=== PATIENT | male | born 1950 | race Caucasian/White ===

== ENCOUNTER 2025-04-19 15:00 | Outpatient (AMB) | payer MEDICARE, OTHER, SELFPAY ==
--- NOTE | 2025-04-19 15:22 | A.OFFPC_ITS ---
Vital Signs 04/19/25 15:31 Height 5 ft 8.11 in Weight 224 lb 6 oz BMI 34.0 BP 108/82 Blood Pressure Location Lt brachial Position Sitting Respiration 14 Pulse 88 Pulse Source Pulse Oximeter Temp 98.6 F Temp Source Oral Pulse Oximetry (%) 93 Oxygen Delivery Method Room Air Intake Visit Reasons: [facility] care/dr mina patient Intake Note: New pateint visit Compensation Coordinator Required: No Allergies No Known Allergies Allergy (Verified 04/19/25 15:28) Tobacco use date assessed: 04/19/25 Fall risk assessment: No Falls in past year Last assessed Fall Risk: 04/19/25 Dental Screening Dental Screen Date: 04/19/25 Did you have a dental visit in the last 12 months?: Yes Did you have a dental problem in the last 6 months where you did not have access to dental care?: No Was dental information given to patient?: Patient has dentist HPI HPI Comments History of Present Illness Details 75 year old male with a past medical his tory of a fib, htn, hld, SSS s/p PPM, type 2 DM, YINA, history of colon cancer presenting to [facility]. Saw Dr Hernandez for AWV 01/06/25 prior to long term Diabetes- On metformin 1000mg [id number] noted at 6.4%. on . eye exam UTD. [facility]-history of colon cancer. Patients colonoscopy is up to date. [facility] CV: afib. PPM SSS. eliquis, cardizem, furosemide [address] Bush YINA: on CPAP. [facility] pul urology-dr bayron WILDER Prior history of gout [facility]. ROS CONSTITUTIONAL: Denies weight loss, fever and chills. HEENT: Denies changes in vision and hearing. RESPIRATORY: Denies SOB and cough. CV: Denies palpitations and CP GI: Denies abdominal pain, nausea, vomiting and diarrhea. : Denies dysuria and urinary frequency. MSK: Denies new myalgia and joint pain. SKIN: Denies rash and pruritus. NEUROLOGICAL: Denies headache PSYCHIATRIC: Denies recent changes in mood. PHYSICAL EXAM: GENERAL: Alert and oriented x 3. NAD EYES: EOMI. Anicteric. HENT: Moist mucous membranes. No scleral icterus. No cervical lymphadenopathy. LUNGS: Clear to auscultation bilaterally. CARDIOVASCULAR: Regular rate and rhythm. No murmur. No JVD. ABDOMEN: Soft, non-tender +bs EXTREMITIES: No edema. Non-tender. SKIN: No rashes or lesions. Warm. NEUROLOGIC: No focal neurological deficits. CN II-XII grossly intact PSYCHIATRIC: Cooperative. Appropriate mood and affect [facility] Medical History Cardiac pacemaker Surgical History History of low anterior resection of rectum H/O colonoscopy Family History Mother Dementia Father Respiratory disease Other FH: mental illness Social History Housing: House Alcohol intake: current Patient Tobacco Use Status: Former Tobacco user (smoked from age [age]) Years Smoked: 1 e-Cigarette/Vaping Use: Never Used Current occupational status: retired Cognitive needs: No Hearing needs: Yes (Hearing loss, having ear aids) Vision needs: No Questionnaire PHQ-9 Over the last 2 weeks, how often have you been bothered by any of the following problems? 1. Little interest or pleasure in doing things: not at all 2. Feeling down, depressed, or hopeless: not at all 3. Trouble falling or staying asleep, or sleeping too much: not at all 4. Feeling tired or having little energy: not at all 5. Poor appetite or overeating: not at all 6. Feeling bad about yourself - or that you are a failure or have let yourself or your family down: not at all 7. Trouble concentrating on things, such as reading the newspaper or watching television: not at all 8. Moving or speaking so slowly that other people could have noticed. Or the opposite - being so fidgety or restless that you have been moving around a lot more than usual: not at all 9. Thoughts that you would be better off or of hurting yourself in some way: not at all Total score: 0 Depression Screening Interpretation: Negative Depression Screening Done: Yes 49745 - PHQ-9 Billing: Yes Source: Developed by Drs. Maulik L. Britney, Edwin Zhou and colleagues, with an educational lashell from [employer]. Thrive Questionnaire Date Thrive assessed: 04/19/25 I am a: Patient What is your living situation today?: I have a steady place to live Within the past 12 months, did the food you bought not last and you didn't have the money to get more?: Never true Within the past 12 months, did you worry whether your food would run out before you got money to buy more?: Never true Do you have trouble paying for medicines?: No Do you have trouble getting transportation to medical appointments?: No Do you have trouble paying your heating and electricity bill?: No Do you have trouble taking care of your child, family member or friend?: No Do you have trouble with day-to-day activities such as bathing, preparing meals, shopping, managing finances, etc.?: No Are you currently unemployed and looking for a job?: No Are you interested in more education?: No Please select the resources that you would like help with: None Currently or been in a relationship where the following occur: No concerns reported THRIVE Score: 0 AUDIT C Alcohol Use Questionnaire (AUDIT-C) 1. How often do you have a drink containing alcohol?: 2-3 times a week 2. How many drinks containing alcohol do you have on a typical day when you are drinking?: 1 or 2 3. How often do you have six or more drinks on one occasion?: Never Total Score: 3 GALE-7 AMB Questionnaire GALE-7 Date GALE - 7 assessed: 04/19/25 Feeling nervous, anxious, or on edge: 0 = Not at all Not being able to stop or control worryin = Not at all Worrying too much about different things: 1 = Several days Trouble relaxin = Several days Being so restless that it is hard to sit still: 0 = Not at all Becoming easily annoyed or irritable: 0 = Not at all Feeling afraid as if something awful might happen: 0 = Not at all Total GALE-7 score (0-4 normal; 5-9 mild; 10-14 moderate; 15-21 severe): 2 Source: Developed by Drs. Maulik Tan, Edwin Zhou and colleagues, with an educational lashell from [employer]. GALE-7 Assessment Billing GALE-7 Assessment Tool: GALE-7 Assessment 78614 Physical exam (Primary Care) Vital Signs: Last Vital Signs Temp 98.6 F 04/19/25 15:31 Pulse 88 04/19/25 15:31 Resp 14 04/19/25 15:31 BP 108/82 04/19/25 15:31 Pulse Ox 93 04/19/25 15:31 Oxygen Delivery Method Room Air 04/19/25 15:31 BMI result Body Mass Index 34.0 Tobacco/Smoking Status: Tobacco use Status Tobacco use date assessed 04/19/25 04/19/25 15:38 Patient Tobacco Use Status Former Tobacco user (smoked 04/19/25 15:38 from age [age]) e-Cigarette/Vaping Use Never Used 04/19/25 15:38 PHQ-9: PHQ-9 Score PHQ-9: Total score 0 04/24/25 11:08 Depression Screening Interpretation: Negative Thrive Assessment: Date of Thrive Assessment Date Thrive assessed 04/19/25 04/19/25 16:30 Currently or been in a relationship where the following occur: No concerns reported Coding Level of Care Code New Pt Level 4 (35683) Complex EM visit Add On G2211 Diagnoses Type 2 diabetes mellitus with other specified complication, without long-term current use of insulin E11.69 Diabetes mellitus [facility] insulin use: without extermination supervisor use Diabetes mellitus complication status: with other specified complication Atrial fibrillation, unspecified type I48.91 Atrial fibrillation type: unspecified Additional Codes GALE-7 Assessment Billing - GALE-7 Assessment Tool: GALE-7 Assessment 07684 ([id number]) PHQ-9 - 47870 - PHQ-9 Billing: Yes ([id number]) Assessment & Plan Assessment & Plan (1) Diabetes type 2: Code(s): E11.9 - Type 2 diabetes mellitus without complications Category: Medical Qualifiers: Diabetes mellitus [facility] insulin use: without [facility] use Diabetes mellitus complication status: with other specified complication Qualified Code(s): E11.69 - Type 2 diabetes mellitus with other specified complication (2) Atrial fibrillation: Code(s): I48.91 - Unspecified atrial fibrillation Category: Medical Qualifiers: Atrial fibrillation type: unspecified Qualified Code(s): I48.91 - Unspecified atrial fibrillation Plan 75 year old to establish care Past medical, surgical, social reviewed Diabetes well controlled. Labs ordered. continue current medications Hypertension-well controlled on current medications. Orders: Orders Hemoglobin A1c 04/22/25 E11.9 - Type 2 diabetes mellitus without complications, H91.90 - Unspecified hearing loss, unspecified ear, I48.91 - Unspecified atrial fibrillation Lipid Panel 04/22/25 E11.9 - Type 2 diabetes mellitus without complications, H91.90 - Unspecified hearing loss, unspecified ear, I48.91 - Unspecified atrial fibrillation Hemoglobin A1c 3 Months E11.9 - Type 2 diabetes mellitus without complications, H91.90 - Unspecified hearing loss, unspecified ear, I48.91 - Unspecified atrial fibrillation Comprehensive Met. Panel 3 Months E11.9 - Type 2 diabetes mellitus without complications, H91.90 - Unspecified hearing loss, unspecified ear, I48.91 - Unspecified atrial fibrillation Comprehensive Met. Panel 04/22/25 E11.9 - Type 2 diabetes mellitus without complications, H91.90 - Unspecified hearing loss, unspecified ear, I48.91 - Unspecified atrial fibrillation Complete Blood Count Auto Diff 04/22/25 E11.9 - Type 2 diabetes mellitus without complications, H91.90 - Unspecified hearing loss, unspecified ear, I48.91 - Unspecified atrial fibrillation Medications: New metoprolol succinate ER 200 mg PO DAILY 90 ea 3RF allopurinol 200 mg PO DAILY 90 tabs 3RF
[2025-04-19 15:31] VITALS: BP 108/82; PULSE 88; RESP 14; TEMP 37; O2SAT 93; BMI 34.0
--- OUTSIDE RECORDS SUMMARY | 2025-04-19 15:32 | XMS_ITS | Clinical Summary ---
Author Organization [facility] Address [address] [place] [address] Care Team Providers Care Head And Neck Surgeon Name Role Phone Rikki Chen MD Primary Care Provider [phone] Allergies Active Allergy Reactions Criticality Noted Date Comments Oxycodone 05/29/2023 Nausea as patient takes it but not really an allergic reaction Medications Medication Sig Dispensed Refills Start Date End Date Status ALBUTEROL IN Inhale 2 puffs into the lungs every 4 (four) hours as needed (WHEEZING, SOB). 0 Active allopurinol (ZYLOPRIM) 300 MG tablet Take 1 tablet (300 mg total) by mouth daily. 0 Active dilTIAZem HCl ER 360 MG TB24 Take 1 capsule by mouth daily. 0 Active apixaban (ELIQUIS) 5 MG TABS tablet Take 1 tablet (5 mg total) by mouth every 12 (twelve) hours. 0 Active finasteride (PROSCAR) 5 MG tablet Take 1 tablet (5 mg total) by mouth daily. 0 Active metFORMIN (GLUCOPHAGE-XR) ER 24 hr tablet 500 mg Take 1 tablet (500 mg total) by mouth every morning with breakfast. 0 Active metoprolol succinate (TOPROL-XL) 24 hr tablet 200 mg Take 1 tablet (200 mg total) by mouth daily. 0 Active pravastatin (PRAVACHOL) tablet 80 mg Take 1 tablet (80 mg total) by mouth daily. 0 Active valsartan (DIOVAN) tablet 320 mg Take 1 tablet (320 mg total) by mouth daily. 0 Active Semaglutide 14 MG TABS Take 1 tablet by mouth daily. 0 Active Active Problems No known active problems Social History Tobacco Use Types Packs/Day Years Used Date Smoking Tobacco: Never Assessed Sex and Gender Information Value Date Recorded Sex Assigned at Male 04/14/2023 3:49 PM EDT Gender Identity Not on file Sexual Orientation Not on file Job Start Date Occupation Industry Not on file Not on file Not on file Last Filed Vital Signs Vital Sign Reading Time Taken Comments Blood Pressure 155/81 05/30/2023 10:42 AM EDT Pulse 88 05/30/2023 10:42 AM EDT Temperature 36.3 C (97.3 F) 05/30/2023 10:42 AM EDT Respiratory Rate - - Oxygen Saturation 96% 05/30/2023 10:42 AM EDT Inhaled Oxygen Concentration - - Weight 108.9 kg (240 lb) 05/30/2023 10:42 AM EDT Height 175.3 cm (5' 9 ) 05/30/2023 10:42 AM EDT Body Mass Index 35.44 05/30/2023 10:42 AM EDT Plan of Treatment Health Maintenance Due Date Last Done Comments Hepatitis C Screening 1950 COVID-19 Vaccine (#1) 1950 Depression Screening 1962 Preventative Health Evaluation 02/22/1968 Colon Cancer Screening (Colonoscopy) 1995 Fall Risk Assessment 2015 DTap / Tdap / Td (1 - Tdap) 10/08/2016 10/07/2016, 0 10/05/2006 RSV Adult > 60+ Yrs or (1 - 1-dose 75+ series) 2025 Influenza Vaccine (#1) 2025 2, 07/09/2021, 07/07/2020, Additional history exists Pneumococcal Vaccine Completed 10/07/2016, 03/09/2015, 04/01/2006 Shingrix-Zoster Vaccine Completed 07/15/2020, 07/15 Hepatitis B Vaccines Aged Out No long er eligible based on patient's age to complete this topic RSV Ped < 20 months Aged Out No longe r eligible based on patient's age to complete this topic Care Teams Head And Neck Surgeon Relationship Specialty Start Date End Date Rikki Chen MD [address] [place] [id number] PCP - General Internal Medicine 04/14/23
== END 2025-04-19 16:00 | disposition home or self-care (01) ==
LOC: HO.HMCFM 15:01
PROVIDERS: PCP Internal Medicine; Visit Provider Internal Medicine
DX: E11.69 Type 2 diabetes mellitus with other specified complication (principal); I48.91 Unspecified atrial fibrillation

== ENCOUNTER → 2025-04-19 15:00 | Outpatient (BNVA) | payer MEDICARE, OTHER, SELFPAY | PROVIDERS: PCP Internal Medicine; Visit Provider Internal Medicine | DX: Z76.89 Persons encountering health services in other specified circumstances (principal); E11.69 Type 2 diabetes mellitus with other specified complication; I48.91 Unspecified atrial fibrillation; I10 Essential (primary) hypertension; G47.33 Obstructive sleep apnea (adult) (pediatric); Z85.038 Personal history of other malignant neoplasm of large intestine; Z79.84 Long term (current) use of oral hypoglycemic drugs; Z99.89 Dependence on other enabling machines and devices; Z13.31 Encounter for screening for depression; Z13.39 Encounter for screening examination for other mental health and behavioral disorders | CPT/HCPCS: 96127; 99202 ==

== ENCOUNTER 2025-04-22 09:53 | Outpatient (REF) | payer MEDICARE, OTHER, SELFPAY ==
--- OUTSIDE RECORDS SUMMARY | 2025-04-22 09:56 | XMS_ITS | Clinical Summary ---
Author Organization [facility] Address [address] [place] [address] Care Team Providers Care Penciller Name Role Phone Rikki Chen MD Primary Care Provider [phone] Allergies Active Allergy Reactions Criticality Noted Date [...] age to complete this topic Care Teams Penciller Relationship Specialty Start Date End Date Rikki Chen MD [address] [place] [address] PCP - General Internal Medicine 04/14/23
--- OUTSIDE RECORDS SUMMARY | 2025-04-22 09:56 | XMS_ITS | Encounter Summary ---
Author Organization [facility] Address [address] [place] [address] Care Team Providers Care Forming Tube Selector Name Role Phone Rikki Chen MD Primary Care Provider [phone] Encounter Details Date Type Department Care Team (Late st Contact Info) Description 08/19/2024 Lab Requisition [facility] - Main Lab [address] [facility] [place] [address] Aaron Martin PA [address] [place] [address] Benign essential microscopic hematuria Social History Tobacco Use Types Packs/Day Years Used Date Smoking Tobacco: Never Assessed Sex and Gender Information Value Date Recorded Sex Assigned at Not on file Legal Sex Male 8:13 PM EST Gender Identity Not on file Sexual Orientation Not on file documented as of this encounter Plan of Treatment Not on file documented as of this encounter Procedures Procedure Name Priority Date/Time Associated Diagnosis Comments AP OUTSIDE CONSULT Routine 08/09/2024 12 :00 AM EST Benign essential microscopic hematuria documented in this encounter Results * Anatomic pathology outside consult (08/09/2024 12:00 AM EST) Final Diagnosis Urine, Voided: Negative for high-grade urothelial carcinoma. Abundant acute inflammation present. 09/03/2024 3:25 PM EST [facility] Clinical Information [id number] Cytology w/reflex UroVysion. 09/03/2024 3:25 PM EST [facility]) [facility] Gross Description A. Urine, Voided, : [id number] recd 1 TP slide 09/03/2024 3:25 PM EST [facility] Disclaimer Technical pathology services provided by [facility] at [address], [place] [address] (CLIA #[id number]/Speedy Griffiths MD, Testing Manager) Unless otherwise specified, all tissue is 10% NB formalin fixed and paraffin embedded. 09/03/2024 3:25 PM EST [facility] Tissue Urine specimen from urethra / Unknown 08/09/2024 08/19/2024 10:52 AM EST us Aaron [facility] PATH[facility]Y ORDERAB LES Final Result [facility] [address] [place] [address], documented in this encounter Visit Diagnoses Diagnosis Benign essential microscopic hematuria documented in this encounter Care Teams Forming Tube Selector Relationship Specialty Start Date End Date Rikki Chen MD [address] [place] [address] PCP - General 04/14/23 documented as of this encounter
[2025-04-22 11:33] LABS: MANUAL DIFF FLAG NO
[2025-04-22 11:43] LABS: Hematocrit 45.0 % (42.0-52.0); Hemoglobin 15.0 g/dl (14.0-18.0); Imm Gran Abs Auto 0.14 X10*3/uL (0.00-0.03); Imm Gran Pct Auto 1.0 % (0.0-0.4); Lymphocytes Absolute Auto 1.3 X10*3/uL (1.2-4.9); Mean Corpuscular HGB Conc 33.3 g/dl (31.0-36.0); Mean Corpuscular Hemoglobin 31.6 pg (27.0-33.0); Mean Corpuscular Volume 94.7 fL (80.0-98.0); NRBC Abs Auto 0.000 X10*3/uL (0.0-0.012); NRBC Pct Auto 0.0 /100WBC (0.0-0.2); Platelet Count 480 X10*3/uL (160-400); Red Blood Count 4.75 X10*6/uL (4.60-5.80); White Blood Count 14.0 X10*3/uL (4.8-10.8)
[2025-04-22 12:06] LABS: Hemoglobin A1C 164.6403 umol/L; Total Hemoglobin (HGBA1C) 3919.7084 umol/L
[2025-04-22 12:18] LABS: Alanine Aminotransferase 19 U/L (0-40); Albumin Level 4.2 g/dL (3.5-5.0); Alkaline Phosphatase 76 U/L (39-117); Anion Gap 11 (12-20); Aspartate Amino Transferase 38 U/L (5-37); Blood Urea Nitrogen 16 mg/dL (9-16); Calcium 9.3 mg/dL (8.4-10.2); Carbon Dioxide 31 mmol/L (22-29); Chloride 101 mmol/L (96-108); Cholesterol 112 mg/dL (<200); Estimated Glomerular Filt Rate > 60; HDL Cholesterol 29 mg/dL (>40); Potassium 3.8 mmol/L (3.3-5.1); Sodium 139 mmol/L (135-145); Total Protein 6.5 g/dL (6.5-8.0); Triglycerides 129 mg/dL (<150)
== END 2025-04-22 09:54 | disposition home or self-care (01) ==
LOC: HO.WFDLDS 09:53
PROVIDERS: Visit Provider Internal Medicine
DX: E11.9 Type 2 diabetes mellitus without complications (principal); I48.91 Unspecified atrial fibrillation; H91.90 Unspecified hearing loss, unspecified ear
CPT/HCPCS: 36415; 80053; 80061; 83036; 85025

== ENCOUNTER 2025-07-22 11:07 | Outpatient (REF) | payer MEDICARE, OTHER, SELFPAY ==
--- OUTSIDE RECORDS SUMMARY | 2025-07-22 13:23 | XMS_ITS | Continuity of Care Document ---
Author Organization [place] - [facility], [facility] Address [address] [place] [address] Assessment Encounter Date Assessment Date Assessment LastModified by Organization Details LastModified Time 04/22/2025 04/22/2025 The patient would benefit from hearing aids. 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 He expressed satisfaction with the service received today and is looking forward to working with Marta. [email or web address] Not available 04/22/2025 16:56:12 Plan of Treatment Reminders Order Date Submit Date Provider Last Modified By Organization Details Last Modified Time Details Appointments None record ed. Lab None record ed. Referral None record ed. Procedures None record ed. Surgeries None record ed. Imaging None record ed. Medication Orders None record ed. Patient TargetsNo targets recorded. 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 [email or web address] Not available 04/22/2025 16:56:12 Please note: Parts of this encounter note have been generated by AI based on audio conversation. Patient consent was required prior to utilizing this technology. Content review was required prior to finalizing the note. [email or web address] Not available 04/22/2025 16:56:12 Reason for Referral None Reported. Results Created Date Observation Date Name Description Value Unit Range Abnormal Flag Note LastModifiedBy Organization Detail LastModifiedTime 04/22/20 25 audio gram No observ ation record ed. BARCODE Not Available 2024 15:46:20 Result Notes None recorded. Problems Name Problem SNOMED Code Status Onset Date Resolution Date Notes Provider Name and Address Organization Details Recorded Time Sensorineural hearing loss of bilateral ears 846907442 Active 2024 SAHARA CASTILLO [place], [facility] [address] [facility], [place], [address], [facility] 14:52:10 Problem Notes None recorded. Procedures Surgical History Date Name Laterality Status Provider Name and Address Organization Details Recorded Time 04/22/2025 Comp Audio with Tymps - 96046 & 30398 completed SAHARA CASTILLO MA, [facility] [address] [facility] [address], [place], [address], [facility] 04/22/2025 14:52:04 Imaging Results None recorded. Procedure Notes None recorded. Medical Equipment None Reported. Medications Name Sig Start Date Stop Date Status Note LastModified by Organization Details LastModified Time furosemide 40 mg tablet TAKE 1 TABLET BY MOUTH EVERY DAY 04/22 completed Not Available Not Available Not Available ammonium lactate 12 % lotion APPLY TO ARMS AND LEG TWICE A DAY 04/22 completed Not Available Not Available Not Available metoprolol succinate ER 200 mg tablet,exte nded release 24 hr TAKE 1 TABLET BY MOUTH DAILY active Not Available Not Available No t Available prednisone 20 mg tablet TAKE 3 TABLETS BY MOUTH DAILY FOR 7 DAYS 04/22 completed Not Available Not Available Not Available diltiazem CD 360 mg capsule,ext ended release 24 hr TAKE 1 CAPSULE BY MOUTH EVERY DAY active Not Available Not Available No t Available pravastatin 80 mg tablet TAKE 1 TABLET BY MOUTH EVERY DAY active Not Available Not Available No t Available furosemide 80 mg tablet TAKE 1 TABLET BY MOUTH EVERY DAY active Not Available Not Available No t Available codeine 10 mg-guaifene sin 100 mg/5 mL oral liquid TAKE 5 ML BY MOUTH EVERY 6 HOURS NEEDED FOR COUGH AND CONGESTIO N 04/22 completed Not Available Not Available Not Available allopurinol 300 mg tablet TAKE 1 TABLET BY MOUTH EVERYDAY AT BEDTIME 04/22 completed Not Available Not Available Not Available furosemide 20 mg tablet TAKE 2 TABLETS BY MOUTH DAILY 04/22 completed Not Available Not Available Not Available albuterol sulfate HFA 90 mcg/actuati on aerosol inhaler INHALE 2 PUFFS INTO LUNGS EVERY 4 HOURS NEEDED FOR ASTHMA active Not Available Not Available No t Available metformin ER 500 mg tablet,exte nded release 24 hr TAKE 2 TABLETS BY MOUTH EVERY DAY active Not Available Not Available No t Available finasteride 5 mg tablet TAKE 1 TABLET BY MOUTH EVERY DAY active Not Available Not Available No t Available Eliquis 5 mg tablet TAKE 1 TABLET BY MOUTH 2 TIMES A DAY active Not Available Not Available No t Available Rybelsus 14 mg tablet TAKE 1 TABLET BY MOUTH EVERY DAY active Not Available Not Available No t Available allopurinol 200 mg tablet TAKE 1 TABLET BY MOUTH EVERY DAY active Not Available Not Available No t Available Vitals Date Recorded Body height Body mass index (BMI) Body weight Provider Name and Address Organization Details Last Updated DateTime 04/22/2025 175.26 cm 33.1 kg/m2 255970.69 g TRICIA SAPP [place] - [facility] 04/22/2025 15:04:28 Social History None recorded. Functional Status None recorded. Mental Status None recorded. Family History Nothing Reported. Medical History No medical history recorded. Past Encounters Encounter ID Performer Location Encounter Start Date Encounter Closed Date Diagnosis/Indication Diagnosis SNOMED-CT Code Diagnosis ICD10 Code Diagnosis IMO Codes Diagnosis Note [id number] PEDRO FIGUEROA MD [facility] [address] [address] 04/22/2025 14:00:24 04/22/2025 15:54:35 Sensorineural hearing loss of bilateral ears [id number] H90.3 [id number] SAHARA CASTILLO MA, CCC-A [facility] [address] [address] 04/22/2025 14:00:13 04/22/2025 16:29:51 Sensorineural hearing loss of bilateral ears 515872377 H90.3 [id number] Audiologic al evaluation results:Ri ght ear:Normal hearing at 250 and 500H dropping to mild to severe SNHL with good word recognitio n.Left ear:Normal hearing thru 1000Hz dropping to a mild to severe SNHL with good word recognitio n. Tympanomet ry:Right Ear:Type ALeft Ear:Type A Health Concerns Section Related Observation LastModified by Organization Detai ls LastModified Time None Recorded Concern Status LastModified by Organization Details LastModified Time None Recorded Payers Encounter Date Sequence Insurance Name Policy Number Policy Moreno Covered Member ID Moreno Member ID Guarantor Name 04/22/2025 2 [facility] (PPO) [id number] Adithya Bullock [id number] Adithya Bullock 04/22/2025 1 MEDICARE [place] Adithya Bullock [id number] Adithya Bullock Notes Date Note Type Note Provider Name and Address Organization Details Recorded Time 04/22/2025 text/html Longstanding hearing loss SAHARA CASTILLO MA, CCC-A [address], [address], [facility] 04/22/2025 14:54:36 04/22/2025 text/html ROS as noted in the HPI hearing loss, seeking hearing aids Adithya Bullock is a 75-year-old male who presents for hearing loss. He previously had hearing aids obtained around 2018 at [facility]. He lost one hearing aid, and the remaining device is no longer functioning without its contralateral side. He generally likes using hearing aids and is hoping to replace them. PEDRO FIGUEROA MD [address] [place] [address],[place] [address], [place], [address], [facility] 04/22/2025 16:57:14
--- OUTSIDE RECORDS SUMMARY | 2025-07-22 13:23 | XMS_ITS | Continuity of Care Document ---
Author Organization [place] - [facility] [place], ENTS [facility] Address [address] [place] [address] Assessment No assessment recorded. Plan of Treatment Reminders Order Date Submit Date Provider Last Modified By Organization Details Last Modified Time Details Appointments None record ed. Lab None record ed. Referral None record ed. Procedures None record ed. Surgeries None record ed. Imaging None record ed. Medication Orders None record ed. Patient TargetsNo targets recorded. Patient InstructionsNo instructions recorded. Reason for Referral None Reported. Results Created [...] Time Sensorineural hearing loss of bilateral ears 113530024 Active 2024 SAHARA CASTILLO MA, [facility] [address] [place] [address], [phone], [place] - [facility] 14:52:10 Problem Notes None recorded. Procedures Surgical History Date Name Laterality Status Provider Name and Address Organization Details Recorded Time 04/22/2025 Comp Audio with Tymps - 14331 & 62905 completed SAHARA CASTILLO MA, [facility] [address] [place] [address], [phone], [facility] - [facility] 04/22/2025 14:52:04 Imaging Results None recorded. Procedure [...] Available Not Available No t Available Vitals None Recorded Social History None recorded. Functional Status None recorded. Mental Status None recorded. Family History Nothing Reported. Medical History No medical history recorded. Past Encounters Encounter ID Performer Location Encounter Start Date Encounter Closed Date Diagnosis/Indication Diagnosis SNOMED-CT Code Diagnosis ICD10 Code Diagnosis IMO Codes Diagnosis Note [id number] PEDRO FIGUEROA MD ENTS of [address] [address] 04/22/2025 14:00:24 04/22/2025 15:54:35 Sensorineural hearing loss of bilateral ears 774876905 H90.3 [id number] SAHARA CASTILLO MA, CCC-A ENTS of [address] [address] 04/22/2025 14:00:13 04/22/2025 16:29:51 Sensorineural hearing loss of bilateral ears 479522790 H90.3 [id number] Audiologic al evaluation results:Ri ght ear:Normal hearing at 250 and 500H dropping to mild to severe SNHL with good word recognitio n.Left ear:Normal hearing thru 1000Hz dropping to a mild to severe SNHL with good word recognitio n. Tympanomet ry:Right Ear:Type ALeft Ear:Type A [id number] BEVERLY MILLER [place] [address] [place] [address] [place] [address] 04/27/2025 08:49:28 04/28/2025 15:29:36 Sensorineural hearing loss of bilateral ears 451348435 H90.3 [id number] BEVERLY MILLER ENTS of [address] [address] 05/05/2025 14:25:29 05/12/2025 11:16:22 Sensorineural hearing loss of bilateral ears 264991183 H90.3 [id number] Health Concerns Section Related Observation LastModified by Organization Detai ls LastModified Time None Recorded Concern Status LastModified by Organization Details LastModified Time None Recorded Payers Encounter Date Sequence Insurance Name Policy Number Policy Moreno Covered Member ID Moreno Member ID Guarantor Name 05/05/2025 1 [place] B-[place] [employer] Adithya Bullock [id number] Adithya Bullock 05/05/[address] [facility] INDEMNITY PLAN (MEDICARE SUPPLEMENT) [id number] Shahida Bullock [id number] Adithya Bullock Notes Date Note Type Note Provider Name and Address Organization Details Recorded Time 05/05/2025 text/html Instructed patient and Rosalia (who is my HOFFMAN pt) on care, use and maintenance. 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 Ran real ear and set the hearing aids at 80 % with auto acc set to 18 days. VC was briefly reviewed. Pt paid balance with a credit card. He will return in 3 weeks for a follow up or call sooner if needed. At the next visit, I will review wax traps and potentially pair aids to his carolina (only). They leave for [place] on 06/10.I will send his [employer] paperwork out today. JANNA VELASQUEZ, [address],[place] [address], [place], [address], [facility] - [facility] 05/05/2025 15:31:56
--- OUTSIDE RECORDS SUMMARY | 2025-07-22 13:23 | XMS_ITS | Continuity of Care Document ---
Author Organization [place] - [facility] [place], ENTS [facility] Address [address] [place] [address] Assessment No assessment recorded. Plan of Treatment [...] Time Sensorineural hearing loss of bilateral ears [id number] Active 2024 SAHARA CASTILLO MA, [facility] [address] [place] [address], [phone], [place] - [facility] 14:52:10 Problem Notes None recorded. Procedures Surgical History Date Name Laterality Status Provider Name and Address Organization Details Recorded Time 04/22/2025 Comp Audio with Tymps - 78555 & 70195 completed SAHARA CASTILLO MA, [facility] [address] [place] [address], [phone], [facility] - [facility] 04/22/2025 14:52:04 Imaging Results None recorded. Procedure [...] Updated DateTime 04/22/2025 175.26 cm 33.1 kg/m2 833928.69 g TRICIA SAPP [place] - [facility] 04/22/2025 15:04:28 Social History None recorded. Functional Status None recorded. Mental Status None recorded. Family History Nothing Reported. Medical History No medical history recorded. Past Encounters Encounter ID Performer Location Encounter Start Date Encounter Closed Date Diagnosis/Indication Diagnosis SNOMED-CT Code Diagnosis ICD10 Code Diagnosis IMO Codes Diagnosis Note [id number] PEDRO FIGUEROA MD ENTS of [address] [address] 04/22/2025 14:00:24 04/22/2025 15:54:35 Sensorineural hearing loss of bilateral ears 781239692 H90.3 [id number] SAHARA CASTILLO MA, CCC-A ENTS of [address] [address] 04/22/2025 14:00:13 04/22/2025 16:29:51 Sensorineural hearing loss of bilateral ears 366109230 H90.3 [id number] Audiologic al evaluation results:Ri ght ear:Normal hearing [...] Moreno Member ID Guarantor Name 04/22/2025 2 [facility] [id number] Adithya Bullock [id number] Adithya Bullock 04/22/2025 1 MEDIC[place] B-[place]: [employer] Adithya Bullock [id number] Adithya Bullock Notes Date Note Type Note Provider Name and Address Organization Details Recorded Time 04/22/2025 text/html Longstanding hearing loss SAHARA CASTILLO MA, CCC-A [address] [place] [address], [place], [address], [facility] - [facility] 04/22/2025 14:54:36 04/22/2025 text/html ROS as noted in the HPI hearing loss, seeking hearing aids Adithya Bullock is a 75-year-old male who presents for hearing loss. He previously had hearing aids obtained around 2018 at [facility]. He lost one hearing aid, and the remaining device is no longer functioning without its contralateral side. He generally likes using hearing aids and is hoping to replace them. PEDRO FIGUEROA MD [address] [place] [address], [phone], [facility] - [facility] 04/22/2025 16:57:14
--- OUTSIDE RECORDS SUMMARY | 2025-07-22 13:23 | XMS_ITS | Continuity of Care Document ---
Author Organization [place] - [facility] [place], [place] Address [address] [address] Assessment No assessment recorded. Plan of Treatment [...] instructions recorded. Reason for Referral None Reported. Problems Name Problem SNOMED Code Status Onset Date Resolution Date Notes Provider Name and Address Organization Details Recorded Time Sensorineural hearing loss of bilateral ears 057541102 Active 2024 SAHARA CASTILLO MA, [facility] 100 [facility] [address], [place], [address], [place] - [facility] 14:52:10 Problem Notes None recorded. Procedures Surgical History Date Name Laterality Status Provider Name and Address Organization Details Recorded Time 04/22/2025 Comp Audio with Tymps - 21077 & 39761 completed SAHARA CASTILLO MA, [facility] 100 [facility] [address], [place], [address], [place] - [facility] 04/22/2025 14:52:04 Imaging Results None recorded. Procedure [...] ICD10 Code Diagnosis IMO Codes Diagnosis Note [id number] BEVERLY MILLER [place] 100 [facility] 100 [place] [address] 04/27/2025 08:49:28 04/28/2025 15:29:36 Sensorineural hearing loss of bilateral ears 844363926 H90.3 [id number] BEVERLY MILLER [facility] [place] 100 [facility] [place] [address] 05/05/2025 14:25:29 05/12/2025 11:16:22 Sensorineural hearing loss of bilateral ears 140587217 H90.3 [id number] BEVERLY MILLER [place] 100 [facility],[place] 100 [facility] [place] [address] 05/25/2025 09:01:28 05/26/2025 11:37:24 Sensorineural hearing loss of bilateral ears 477717943 H90.3 [id number] Health Concerns Section Related Observation LastModified by Organization Detai ls LastModified Time None Recorded Concern Status LastModified by Organization Details LastModified Time None Recorded Payers Encounter Date Sequence Insurance Name Policy Number Policy Moreno Covered Member ID Moreno Member ID Guarantor Name 05/25/2025 1 MEDICARE B-[place]: [facility] [employer] Adithya Bullock [id number] Adithya Bullock 05/25/2025 2 [facility] INDEMNITY PLAN (MEDICARE SUPPLEMENT) [id number] Shahida Zoraida Kobe [id number] Adithya Bullock Notes Date Note Type Note Provider Name and Address Organization Details Recorded Time 05/25/2025 text/html He has no real complaints. He does not necessarily notice the improvement in his hearing but Rosalia does! Turned up slightly. Encouraged him to use his VC as needed. He really does not use his cell phone and did not have it with him today. If they would like me to add the carolina at any time I told them to call me.Added anchors and switched him to large open domes as he said one of his aids fell out. He can cut off the anchors if he does not like them. Gave him all 3 sizes of open domes (although only Rosalia uses the small open) so he can switch back to med open domes if he prefers.They leave for [facility] in 2 weeks and head to [place] in the middle of September. Encouraged them to call and set up an appt before they head to [place] if needed. I will likely sched them both together and update Rosalia's HT. JANNA HILLBEVERLY PACE 100 [facility],[place] [address], [place], [address], [facility] - [facility] 05/25/2025 09:51:41
--- OUTSIDE RECORDS SUMMARY | 2025-07-22 13:23 | XMS_ITS | Continuity of Care Document ---
Author Organization [place] - [facility] [place], [facility] - [facility] Address [address] [address] Assessment No assessment recorded. Plan of Treatment [...] Time Sensorineural hearing loss of bilateral ears 437405304 Active 2024 SAHARA CASTILLO MA, [facility] 100 [facility] 100[place], [address], [place] - [facility] 14:52:10 Problem Notes None recorded. Procedures Surgical History Date Name Laterality Status Provider Name and Address Organization Details Recorded Time 04/22/2025 Comp Audio with Tymps - 53837 & 54720 completed SAHARA CASTILLO MA, [facility] [address] [place] [address], [place], [address], [facility] - [facility] 04/22/2025 14:52:04 Imaging Results None recorded. Procedure [...] ICD10 Code Diagnosis IMO Codes Diagnosis Note [id number] PEDRO FIGUEROA MD ENT[facility] of [facility] 100 [place] [address] 04/22/2025 14:00:24 04/22/2025 15:54:35 Sensorineural hearing loss of bilateral ears 126581856 H90.3 [id number] SAHARA CASTILLO MA, CCC-A ENTS of [facility] [address] [place] [address] 04/22/2025 14:00:13 04/22/2025 16:29:51 Sensorineural hearing loss of bilateral ears 179284247 H90.3 [id number] Audiologic al evaluation results:Ri ght ear:Normal hearing at 250 and 500H dropping to mild to severe SNHL with good word recognitio n.Left ear:Normal hearing thru 1000Hz dropping to a mild to severe SNHL with good word recognitio n. Tympanomet ry:Right Ear:Type ALeft Ear:Type A [id number] BEVERLY MILLER [place] 100 [facility] ite 100 [place] [address] 04/27/2025 08:49:28 04/28/2025 15:29:36 Sensorineural hearing loss of bilateral ears 861669340 H90.3 [id number] Health Concerns Section Related Observation LastModified by Organization Detai ls LastModified Time None Recorded Concern Status LastModified by Organization Details LastModified Time None Recorded Payers Encounter Date Sequence Insurance Name Policy Number Policy Moreno Covered Member ID Moreno Member ID Guarantor Name 04/27/2025 1 [place] [employer] Adithya Bullock [id number] Adithya Bullock 04/27/2025 2 [facility] INDEMNITY PLAN (MEDICARE SUPPLEMENT) [id number] Shahida Bullock [id number] Adithya Bullock Notes Date Note Type Note Provider Name and Address Organization Details Recorded Time 04/27/2025 text/html Patient with reported gradual onset SNHL 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 (Previously had [employer] RICS but it sounds like he never liked them and did not use them much)Patient has seen an power shovel operator helper who has provided medical clearance for the use of hearing devices.Reviewed history of hearing loss, the impact on hearing loss on communicative ability and patient's goals for amplification. After discussing the pros and cons of various models and levels of technology, the patient is going to try the Infinio 90Rs in [place] to better match his glass frames.He was hoping to try ITCs but explained to him that based on the configuration of his HL that is not ideal. Informed him of his 90 day trial and told him that we can exchange the aids if he cannot adjust to the style.They leave for [facility] on 06/08 so we should have plenty of time to adjust the aids before he goes.Has [employer]. Rosalia (Shahida) is my HOFFMAN pt- she is wearing L90RLs. JANNA VELASQUEZ, [facility] 100 [facility],[place] [address], [place], [address], [place] - [facility] 04/27/2025 09:55:41
--- OUTSIDE RECORDS SUMMARY | 2025-07-22 13:23 | XMS_ITS | Data Portability ---
Author Organization [place] - [facility], Allergy Address [address] [address] Assessment Encounter Date Assessment Date Assessment LastModified by Organization Details LastModified Time 04/22/2025 04/22/2025 The patient would benefit from hearing aids. 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 He expressed satisfaction with the service received [...] By Organization Details Last Modified Time 04/22/2025 04694 The patient is advised to work with our audiology team or return to his previous deaf and hard of hearing teacher at [facility] to replace his hearing aids. dplosky Not [...] Time Sensorineural hearing loss of bilateral ears 361458660 Active 2024 SAHARA CASTILLO MA, [facility] 100 [facility] 100, [place], [address], [facility] - [facility] 14:52:10 Problem Notes None recorded. Procedures Surgical History Date Name Laterality Status Provider Name and Address Organization Details Recorded Time 04/22/2025 Comp Audio with Tymps - 37421 & 89154 completed SAHARA CASTILLO MA, [facility] 100 [facility] 100, [place], [address], [facility] - [facility] 04/22/2025 14:52:04 Imaging Results None recorded. [...] Updated DateTime 04/22/2025 175.26 cm 33.1 kg/m2 049994.69 g TRICIA SAPP [place] - [facility] 04/22/2025 15:04:28 Social History None recorded. Functional Status None recorded. Mental Status None recorded. Family History Nothing Reported. Medical History No medical history recorded. Past Encounters Encounter ID Performer Location Encounter Start Date Encounter Closed Date Diagnosis/Indication Diagnosis SNOMED-CT Code Diagnosis ICD10 Code Diagnosis IMO Codes Diagnosis Note [id number] PEDRO FIGUEROA MD ENTS of [address] [address] 04/22/2025 14:00:24 04/22/2025 15:54:35 Sensorineural hearing loss of bilateral ears [id number] H90.3 [id number] SAHARA CASTILLO MA, CCC-A ENTS of [address] [address] 04/22/2025 14:00:13 04/22/2025 16:29:51 Sensorineural hearing loss of bilateral ears 056752701 H90.3 [id number] Audiologic al evaluation results:Ri ght ear:Normal hearing at 250 and 500H dropping to mild to severe SNHL with good word recognitio n.Left ear:Normal hearing thru 1000Hz dropping to a mild to severe SNHL with good word recognitio n. Tympanomet ry:Right Ear:Type ALeft Ear:Type A [id number] JANNA VELASQUEZ, AUD [place] 100 [facility],[place] 100 [facility] [place] [address] 04/27/2025 08:49:28 04/28/2025 15:29:36 Sensorineural hearing loss of bilateral ears 420914328 H90.3 [id number] BEVERLY MILLER [facility] 100 [place] [address] 05/05/2025 14:25:29 05/12/2025 11:16:22 Sensorineural hearing loss of bilateral ears 678031492 H90.3 [id number] BEVERLY MILLER [place] 100 [facility],[place] 100 [facility] [place] [address] 05/25/2025 09:01:28 05/26/2025 11:37:24 Sensorineural hearing loss of bilateral ears 069016436 H90.3 [id number] Health Concerns Section Related Observation LastModified by Organization Detai ls LastModified Time None Recorded Concern Status LastModified by Organization Details LastModified Time None Recorded Advance Directives Directive None Recorded Payers Insurance Date Sequence Insurance Name Policy Number Policy Moreno Covered Member ID Moreno Member ID Guarantor Name 04/27/2025 2 [facility] (PP[facility]) [id number] Adithya Bullock [id number] Adityha Bullock 04/22/2025 1 [place] [facility] Adithya Bullock [id number] Adithya Bullock 05/25/2025 1 [place]IC[place] [employer] Adithya Bullock [id number] Adithya Bullock 05/25/2025 2 [facility] INDEMNITY PLAN (MEDICARE SUPPLEMENT) [id number] Shahida Bullock [id number] Adithya Bullock Notes Date Note Type Note Provider Name and Address Organization Details Recorded Time 04/22/2025 text/html Longstanding hearing loss SAHARA CASTILLO MA, CCC-A 100 [facility] 100, [place], [address], [place] - [facility] 04/22/2025 14:54:36 04/22/2025 text/html ROS as noted in the HPI hearing loss, seeking hearing aids Adithya Bullock is a 75-year-old male who presents for hearing loss. He previously had hearing aids obtained around 2018 at [facility]. He lost one hearing aid, and the remaining device is no longer functioning without its contralateral side. He generally likes using hearing aids and is hoping to replace them. 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 (Previously had [employer] RICS but it sounds like he never liked them and did not use them much)Patient has seen an [employer] who has provided medical clearance for the use of hearing devices.Reviewed history of hearing loss, the impact on hearing loss on communicative ability and patient's goals for amplification. After discussing the pros and cons of various models and levels of technology, the patient is going to try the Infinio 90Rs in [place] to better match his glass frames.He was hoping to try ITCs but explained to him that based on the configuration of his HL that is not ideal. Informed him of his 90 day trial and told him that we can exchange the aids if he cannot adjust to the style.They leave for [facility] on 06/08 so we should have plenty of time to adjust the aids before he goes.Has [employer]. Rosalia (Shahida) is my HOFFMAN pt- she is wearing L90RLs. BEVERLY MILLER 100 [facility] 100, [place], [address], [facility] 04/27/2025 09:55:41 05/05/2025 text/html Instructed patient and Rosalia (who is my HOFFMAN pt) on care, use and maintenance. 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 Ran real ear and set the hearing [...] to his carolina (only). They leave for [place] on 06/10.I will send his [employer] paperwork out today. JANNA VELASQUEZ, [facility] [address] [place] [address], [place], [address], [facility] - [facility] [place] 05/05/2025 15:31:56 05/25/2025 text/html He has no real complaints. [...] he prefers.They leave for [facility] in 2 weeks and head to [place] in the middle of September. Encouraged them to call and set up an appt before they head to [place] if needed. I will likely sched them both together and update Rosalia's HT. JANNA VELASQUEZ, AUD [address] [place] [address], [place], [address], [facility] - [facility] 05/25/2025 09:51:41
--- OUTSIDE RECORDS SUMMARY | 2025-07-22 13:23 | XMS_ITS | Clinical Summary ---
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
[2025-07-22 14:34] LABS: Alanine Aminotransferase 20 U/L (0-40); Albumin Level 4.4 g/dL (3.5-5.0); Alkaline Phosphatase 80 U/L (39-117); Anion Gap 10 (12-20); Aspartate Amino Transferase 42 U/L (5-37); Blood Urea Nitrogen 16 mg/dL (9-16); Calcium 9.4 mg/dL (8.4-10.2); Carbon Dioxide 35 mmol/L (22-29); Chloride 100 mmol/L (96-108); Estimated Glomerular Filt Rate > 60; Potassium 3.7 mmol/L (3.3-5.1); Sodium 141 mmol/L (135-145); Total Protein 6.8 g/dL (6.5-8.0)
== END 2025-07-22 11:08 | disposition home or self-care (01) ==
LOC: HO.WFDLDS 11:07
PROVIDERS: Visit Provider Internal Medicine
DX: I48.91 Unspecified atrial fibrillation (principal); E11.9 Type 2 diabetes mellitus without complications; H91.90 Unspecified hearing loss, unspecified ear
CPT/HCPCS: 36415; 80053; 83036

== ENCOUNTER 2025-07-25 09:15 | Outpatient (AMB) | payer MEDICARE, OTHER, SELFPAY ==
[2025-07-25 09:27] VITALS: BP 122/56; PULSE 56; RESP 14; O2SAT 96; BMI 34.9
--- NOTE | 2025-07-25 09:27 | A.OFFPC_ITS ---
Vital Signs 07/25/25 09:27 Height 5 ft 8.11 in Weight 230 lb 2 oz BMI 34.9 BP 122/56 L Blood Pressure Location Rt brachial Position Sitting Respiration 14 Pulse 56 Pulse Source Pulse Oximeter Pulse Oximetry (%) 96 Oxygen Delivery Method Room Air Intake Visit Reasons: DM Intake Note: Diabetes follow up Entry Specialists Required: No Accompanied by: Spouse Allergies No Known Allergies Allergy (Verified 07/25/25 09:30) Tobacco use date assessed: 07/25/25 Dental Screening Dental Screen Date: 04/19/25 HPI HPI Comments History of Present Illness Details 75 year old male with a past medical his tory of a fib, htn, hld, SSS s/p PPM, type 2 DM, YINA, history of colon cancer presenting for follow up Diabetes- On metformin 1000mg daily. A1C 6.3% from 6.0% from 6.4%. eye exam [place]. [place] [facility]-history of colon cancer. Patients colonoscopy is up to date. [facility] CV: afib. PPM SSS. eliquis, cardizem, furosemide [address] Bush. +murmur. Echo three weeks ago, has not heard results YINA: on CPAP. [facility] pul urology-dr verma. UTD MSK Prior history of gout [facility]. ROS CONSTITUTIONAL: Denies weight loss, fever and chills. HEENT: Denies changes in vision and hearing. RESPIRATORY: Denies SOB and cough. CV: Denies palpitations and CP GI: Denies abdominal pain, nausea, vomiting and diarrhea. : Denies dysuria and urinary frequency. MSK: Denies new myalgia and joint pain. SKIN: Denies rash and pruritus. NEUROLOGICAL: Denies headache PSYCHIATRIC: Denies recent changes in mood. PHYSICAL EXAM: GENERAL: Alert and oriented x 3. NAD EYES: EOMI. Anicteric. HENT: Moist mucous membranes. No scleral icterus. No cervical lymphadenopathy. LUNGS: Clear to auscultation bilaterally. CARDIOVASCULAR: Regular rate and rhythm. +murmur No JVD. ABDOMEN: Soft, non-tender +bs EXTREMITIES: No edema. Non-tender. SKIN: No rashes or lesions. Warm. NEUROLOGIC: No focal neurological deficits. CN II-XII grossly intact PSYCHIATRIC: Cooperative. Appropriate mood and affect [facility] Medical History Cardiac pacemaker Surgical History History of low anterior resection of rectum H/O colonoscopy Family History Mother Dementia Father Respiratory disease Other FH: mental illness Social History Housing: House Alcohol intake: current Patient Tobacco Use Status: Former Tobacco user (smoked from age [age]) Years Smoked: 1 e-Cigarette/Vaping Use: Never Used Current occupational status: retired Cognitive needs: No Hearing needs: Yes (Hearing loss, having ear aids) Vision needs: No Questionnaire Thrive Questionnaire Date Thrive assessed: 04/19/25 I am a: Patient What is your living situation today?: I have a steady place to live Within the past 12 months, did the food you bought not last and you didn't have the money to get more?: Never true Within the past 12 months, did you worry whether your food would run out before you got money to buy more?: Never true Do you have trouble paying for medicines?: No Do you have trouble getting transportation to medical appointments?: No Do you have trouble paying your heating and electricity bill?: No Do you have trouble taking care of your child, family member or friend?: No Do you have trouble with day-to-day activities such as bathing, preparing meals, shopping, managing finances, etc.?: No Are you currently unemployed and looking for a job?: No Are you interested in more education?: No Please select the resources that you would like help with: None Currently or been in a relationship where the following occur: No concerns reported THRIVE Score: 0 AUDIT C Alcohol Use Questionnaire (AUDIT-C) 1. How often do you have a drink containing alcohol?: Never 3. How often do you have six or more drinks on one occasion?: Never Total Score: 0 GALE-7 AMB Questionnaire GALE-7 Date GALE - 7 assessed: 04/19/25 Source: Developed by Drs. Maulik Tan, Louise Zamarripa, Edwin Shelton and colleagues, with an educational lashell from [employer]. Physical exam (Primary Care) Tobacco/Smoking Status: Tobacco use Status Tobacco use date assessed 04/19/25 04/19/25 15:38 Patient Tobacco Use Status Former Tobacco user 04/19/25 16:28 e-Cigarette/Vaping Use Never Used 04/19/25 16:28 Thrive Assessment: Date of Thrive Assessment Date Thrive assessed 04/19/25 04/19/25 16:30 Currently or been in a relationship where the following occur: No concerns reported Coding Level of Care Code Est Pt Level 4 (38440) Complex EM visit Add On G2211 Diagnoses Type 2 diabetes mellitus with other specified complication, without long-term current use of insulin E11.69 Diabetes mellitus senior care insulin use: without senior care use Diabetes mellitus complication status: with other specified complication Atrial fibrillation, unspecified type I48.91 Atrial fibrillation type: unspecified Assessment & Plan Assessment & Plan (1) Diabetes type 2: Code(s): E11.9 - Type 2 diabetes mellitus without complications Category: Medical Qualifiers: Diabetes mellitus senior care insulin use: without senior care use Diabetes mellitus complication status: with other specified complication Qualified Code(s): E11.69 - Type 2 diabetes mellitus with other specified complication (2) Atrial fibrillation: Code(s): I48.91 - Unspecified atrial fibrillation Category: Medical Qualifiers: Atrial fibrillation type: unspecified Qualified Code(s): I48.91 - Unspecified atrial fibrillation Plan Type 2 diabetes. Remains well controlled on current medications. Eye exam UTD CV-on AC. Follows with cardiology. Says he had recent echo, has not heard results BPH-continue current medications Orders: Orders Hemoglobin A1c Today E11.69 - Type 2 diabetes mellitus with other specified complication, I48.91 - Unspecified atrial fibrillation, R79.89 - Other specified abnormal findings of blood chemistry Lipid Panel Today E11.69 - Type 2 diabetes mellitus with other specified complication, I48.91 - Unspecified atrial fibrillation, R79.89 - Other specified abnormal findings of blood chemistry Microalbumin, Random (w Creat) Today E11.69 - Type 2 diabetes mellitus with other specified complication, I48.91 - Unspecified atrial fibrillation, R79.89 - Other specified abnormal findings of blood chemistry Complete Blood Count Auto Diff Today E11.69 - Type 2 diabetes mellitus with other specified complication, I48.91 - Unspecified atrial fibrillation, R79.89 - Other specified abnormal findings of blood chemistry Comprehensive Met. Panel Today E11.69 - Type 2 diabetes mellitus with other specified complication, I48.91 - Unspecified atrial fibrillation, R79.89 - Other specified abnormal findings of blood chemistry Medications: New allopurinol 300 mg PO DAILY 90 tabs 3RF finasteride 5 mg PO DAILY 90 tabs 3RF pravastatin 80 mg PO DAILY 90 tabs 3RF diltiazem HCl CD 360 mg PO DAILY 90 caps 3RF metformin ER 1,000 mg (2 x 500 mg) PO DAILY 180 tabs 3RF Changed From apixaban (Eliquis) 5 mg PO BID PRN To Eliquis (apixaban) 5 mg PO BID 180 tabs 3RF NS From semaglutide (Rybelsus) 14 mg PO DAILY To Rybelsus (semaglutide) 14 mg PO DAILY 90 tabs 3RF NS Refilled metoprolol succinate ER 200 mg PO DAILY 90 tabs 3RF
--- OUTSIDE RECORDS SUMMARY | 2025-07-25 10:04 | XMS_ITS | Encounter Summary ---
Author Organization [facility] Address [address] [place] [address] Care Team Providers Care Girls Tennis Coach Name Role Phone Rikki Chen MD Primary Care Provider Encounter Details Date Type Department Care Team (Late st Contact Info) Description 08/19/2024 Lab Requisition [facility] - Main Lab [address] [facility] [place] [address] Aaron Martin PA [address] [place] [address] Benign essential microscopic hematuria Social [...] acute inflammation present. 09/03/2024 3:25 PM EST [facility] Clinical Information [id number] Cytology w/reflex UroVysion. 09/03/2024 3:25 PM EST [facility] Gross Description A. Urine, Voided, : [id number] recd 1 TP slide 09/03/2024 3:25 PM EST [facility] Disclaimer Technical pathology services provided by [facility] at [address], [place] [address] (CLIA #[id number]/Speedy Griffiths MD, High School Biology Teacher) Unless otherwise specified, all tissue is 10% NB formalin fixed and paraffin embedded. 09/03/2024 3:25 PM EST [facility] Tissue Urine specimen from urethra / Unknown 08/09/2024 08/19/2024 10:52 AM EST us Aaron [facility] PATHOLOGY ORDERAB LES Final Result [facility] [address] [place] [address], documented in this encounter Visit Diagnoses Diagnosis Benign essential microscopic hematuria documented in this encounter Care Teams Girls Tennis Coach Relationship Specialty Start Date End Date Rikki Chen MD [address] [place] [address] PCP - General 04/14/23 documented as of this encounter
--- OUTSIDE RECORDS SUMMARY | 2025-07-25 10:04 | XMS_ITS | Continuity of Care Document ---
Author Organization [place] - [facility] [place], [facility] Address [address] [place] [address] Assessment No assessment recorded. Plan of Treatment [...] Time Sensorineural hearing loss of bilateral ears [id number] Active 2024 SAHARA CASTILLO MA, [facility] [address] [place] [address], [phone], [place] - [facility] 14:52:10 Problem Notes None recorded. Procedures Surgical History Date Name Laterality Status Provider Name and Address Organization Details Recorded Time 04/22/2025 Comp Audio with Tymps - 15331 & 73523 completed SAHARA CASTILLO MA, [facility] [address] [place] [address], [phone], [facility] - [facility] 04/22/2025 14:52:04 Imaging Results None recorded. Procedure [...] ICD10 Code Diagnosis IMO Codes Diagnosis Note [id number] PEDRO FIGUEROA MD [facility] of [address] [address] 04/22/2025 14:00:24 04/22/2025 15:54:35 Sensorineural hearing loss of bilateral ears [id number] H90.3 [id number] SAHARA CASTILLO MA, CCC-A [facility] of [address] [address] 04/22/2025 14:00:13 04/22/2025 16:29:51 Sensorineural hearing loss of bilateral ears 249528837 H90.3 [id number] Audiologic al evaluation results:Ri ght ear:Normal hearing at 250 and 500H dropping to mild to severe SNHL with good word recognitio n.Left ear:Normal hearing thru 1000Hz dropping to a mild to severe SNHL with good word recognitio n. Tympanomet ry:Right Ear:Type ALeft Ear:Type A [id number] BEVERLY MILLER [place] [address] [place] [address] [place] [address] 04/27/2025 08:49:28 04/28/2025 15:29:36 Sensorineural hearing loss of bilateral ears 180287097 H90.3 [id number] BEVERLY MILLER [facility] of [address] [address] 05/05/2025 14:25:29 05/12/2025 11:16:22 Sensorineural hearing loss of bilateral ears 719722699 H90.3 [id number] Health Concerns Section Related Observation LastModified by Organization Detai ls LastModified Time None Recorded Concern Status LastModified by Organization Details LastModified Time None Recorded Payers Encounter Date Sequence Insurance Name Policy Number Policy Moreno Covered Member ID Moreno Member ID Guarantor Name 05/05/2025 1 [place] [employer] Adithya Bullock [id number] Adithya Bullock 05/05/2025 2 [facility] INDEMNITY PLAN (MEDICARE SUPPLEMENT) [id number] Shahida Bullock [id number] Adithya Bullock Notes Date Note Type Note Provider Name and Address Organization Details Recorded Time 05/05/2025 text/html Instructed patient and Rosalia (who is my HOFFMAN pt) on care, use and maintenance. Pt was easily able to manipulate aids/scrap charger. Ran real ear and set the hearing [...] his [employer] paperwork out today. JANNA VELASQUEZ, [address],[place] [address], [place], [address], [facility] - [facility] 05/05/2025 15:31:56
--- OUTSIDE RECORDS SUMMARY | 2025-07-25 10:04 | XMS_ITS | Continuity of Care Document ---
Author Organization [place] - [facility] [place], [facility] - [facility] Address [address] [address] Assessment No assessment recorded. Plan of Treatment [...] Time Sensorineural hearing loss of bilateral ears [id number] Active 2024 SAHARA CASTILLO MA, [facility] 100 [facility] [address], [place], [address], [place] [facility] 14:52:10 Problem Notes None recorded. Procedures Surgical History Date Name Laterality Status Provider Name and Address Organization Details Recorded Time 04/22/2025 Comp Audio with Tymps - 69156 & 20097 completed SAHARA CASTILLO MA, [facility] [address] [address], [place], [address], [facility] - [facility] 04/22/2025 14:52:04 Imaging Results None recorded. [...] ICD10 Code Diagnosis IMO Codes Diagnosis Note [id number] PEDRO FIGUEROA MD [facility] [address] [place] [address] 04/22/2025 14:00:24 04/22/2025 15:54:35 Sensorineural hearing loss of bilateral ears [id number] H90.3 [id number] SAHARA CASTILLO MA, CCC-A [facility] [address] [place] [address] 04/22/2025 14:00:13 04/22/2025 16:29:51 Sensorineural hearing loss of bilateral ears 020030441 H90.3 [id number] Audiologic al evaluation results:Ri ght ear:Normal hearing at 250 and 500H dropping to mild to severe SNHL with good word recognitio n.Left ear:Normal hearing thru 1000Hz dropping to a mild to severe SNHL with good word recognitio n. Tympanomet ry:Right Ear:Type ALeft Ear:Type A [id number] BEVERLY MILLER [place] 100 [facility] ite 100 [place] [address] 04/27/2025 08:49:28 04/28/2025 15:29:36 Sensorineural hearing loss of bilateral ears 766248723 H90.3 [id number] Health Concerns Section Related Observation LastModified by Organization Detai ls LastModified Time None Recorded Concern Status LastModified by Organization Details LastModified Time None Recorded Payers Encounter Date Sequence Insurance Name Policy Number Policy Moreno Covered Member ID Moreno Member ID Guarantor Name 04/27/2025 1 [place] [employer] Adithya Bullock [id number] Adithya Bullock 04/27/2025 2 [facility] INDEMNITY PLAN (MEDICARE SUPPLEMENT) [id number] Shahida Bullock [id number] Adithya Bullock Notes Date Note Type Note Provider Name and Address Organization Details Recorded Time 04/27/2025 text/html Patient with reported gradual onset SNHL 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 (Previously had [employer] RICS but it sounds like he never liked them and did not use them much)Patient has seen an stripper latex who has provided medical clearance for the use of hearing devices.Reviewed history of hearing loss, the impact on hearing loss on communicative ability and patient's goals for amplification. After discussing the pros and cons of various models and levels of technology, the patient is going to try the Infinio 90Rs in [place] to better match his glass frames.He was hoping to try ITCs but explained to him that based on the configuration of his HL that is not ideal. Informed him of his 90 day trial and told him that we can exchange the aids if he cannot adjust to the style.They leave for [facility] on 06/08 so we should have plenty of time to adjust the aids before he goes.Has [employer]. Rosalia (Shahida) is my [facility]OFFMAN pt- she is wearing L90RLs. JANNA VELASQUEZ, [facility] 100 [facility],[place] [address], [place], [address], [place] - [facility] 04/27/2025 09:55:41
--- OUTSIDE RECORDS SUMMARY | 2025-07-25 10:04 | XMS_ITS | Data Portability ---
Author Organization [place] - [facility], Allergy Address [address] [address] Assessment Encounter Date Assessment Date Assessment LastModified by Organization Details LastModified Time 04/22/2025 04/22/2025 The patient would benefit from hearing aids. He is welcome to work with our audiology team in the office or return to his previous speech and hearing clinic director at [facility]. He expressed satisfaction with the service received [...] By Organization Details Last Modified Time 04/22/2025 [id number] The patient is advised to work with our audiology team or return to his previous speech and hearing clinic director at [facility] to replace his hearing aids. [email or web address] Not [...] Time Sensorineural hearing loss of bilateral ears [id number] Active 2024 SAHARA CASTILLO MA, [facility] 100 [facility], [place], [address], [facility] - [facility] 14:52:10 Problem Notes None recorded. Procedures Surgical History Date Name Laterality Status Provider Name and Address Organization Details Recorded Time 04/22/2025 Comp Audio with Tymps - 70283 & 15367 completed SAHARA CASTILLO MA, [facility] [address] [facility] [address], [place], [address], [facility] - [facility] 04/22/2025 14:52:04 Imaging Results None recorded. [...] Updated DateTime 04/22/2025 175.26 cm 33.1 kg/m2 258924.69 g TRICIA SAPP [place] - [facility] 04/22/2025 15:04:28 Social History None recorded. Functional Status None recorded. Mental Status None recorded. Family History Nothing Reported. Medical History No medical history recorded. Past Encounters Encounter ID Performer Location Encounter Start Date Encounter Closed Date Diagnosis/Indication Diagnosis SNOMED-CT Code Diagnosis ICD10 Code Diagnosis IMO Codes Diagnosis Note [id number] PEDRO FIGUEROA MD [facility] of [address] [address] 04/22/2025 14:00:24 04/22/2025 15:54:35 Sensorineural hearing loss of bilateral ears 578470990 H90.3 [id number] SAHARA CASTILLO MA, CCC-A [facility] of [address] [address] 04/22/2025 14:00:13 04/22/2025 16:29:51 Sensorineural hearing loss of bilateral ears 337241146 H90.3 [id number] Audiologic al evaluation results:Ri ght ear:Normal hearing at 250 and 500H dropping to mild to severe SNHL with good word recognitio n.Left ear:Normal hearing thru 1000Hz dropping to a mild to severe SNHL with good word recognitio n. Tympanomet ry:Right Ear:Type ALeft Ear:Type A [id number] JANNA VELASQUEZ, AUD [place] 100 [facility],[place] 100 [place] [address] 04/27/2025 08:49:28 04/28/2025 15:29:36 Sensorineural hearing loss of bilateral ears [id number] H90.3 [id number] BEVERLY MILLER [facility] 100 [place] [address] 05/05/2025 14:25:29 05/12/2025 11:16:22 Sensorineural hearing loss of bilateral ears 566977536 H90.3 [id number] BEVERLY MILLER [place] 100 [facility],[place] 100 [place] [address] 05/25/2025 09:01:28 05/26/2025 11:37:24 Sensorineural hearing loss of bilateral ears 901145492 H90.3 [id number] Health Concerns Section Related Observation LastModified by Organization Detai ls LastModified Time None Recorded Concern Status LastModified by Organization Details LastModified Time None Recorded Advance Directives Directive None Recorded Payers Insurance Date Sequence Insurance Name Policy Number Policy Moreno Covered Member ID Moreno Member ID Guarantor Name 04/27/2025 2 [facility] [id number] Adithya Bullock [id number] Adithya Bullock 04/22/2025 1 [place] [facility] Adithya Bullock [id number] Adithya Bullock 05/25/2025 1 MEDIC[place] B-[place]: [employer]ATIONAL [employer] Adithya Bullock [id number] Adithya Bullock 05/25/2025 2 [facility] INDEMNITY PLAN (MEDICARE SUPPLEMENT) [id number] Shahida Bullock [id number] Aidthya Bullock Notes Date Note Type Note Provider Name and Address Organization Details Recorded Time 04/22/2025 text/html Longstanding hearing loss SAHARA CASTILLO MA, CCC-A 100 [facility] 100, [place], [address], [place] - [facility] 04/22/2025 14:54:36 04/22/2025 text/html ROS as noted in the HPI hearing loss, seeking hearing aids Adithya Bullock is a 75-year-old male who presents for hearing loss. He previously had hearing aids obtained around 2018 at [facility]. He lost one hearing aid, and the remaining device is no longer functioning without its contralateral side. He generally likes using hearing aids and is hoping to replace them. PEDRO FIGUEROA MD 100 [facility],[place] [address], [place], [address], 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 (Previously had [employer] RICS but it sounds like he never liked them and did not use them much)Patient has seen an astronomy department chair who has provided medical clearance for the use of hearing devices.Reviewed history of hearing loss, the impact on hearing loss on communicative ability and patient's goals for amplification. After discussing the pros and cons of various models and levels of technology, the patient is going to try the Infinio 90Rs in [place] to better match his glass frames.He was hoping to try ITCs but explained to him that based on the configuration of his HL that is not ideal. Informed him of his 90 day trial and told him that we can exchange the aids if he cannot adjust to the style.They leave for [facility] on 06/08 so we should have plenty of time to adjust the aids before he goes.Has [employer]. Rosalia (Shahida) is my HOFFMAN pt- she is wearing L90RLs. BEVERLY MILLER 100 [facility] 100, [place], [address], [facility] 04/27/2025 09:55:41 05/05/2025 text/html Instructed patient and Rosalia (who is my HOFFMAN pt) on care, use and maintenance. 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 Ran real ear and set the hearing [...] to his [place] (only). They leave for [place] on 06/10.I will send his [employer] paperwork out today. JANNA VELASQUEZ, [facility] [address] [address], [place], [address], [facility] - [facility] [place] 05/05/2025 15:31:56 05/25/2025 text/html He has no [...] open domes if he prefers.They leave for [facility] in 2 weeks and head to [place] in the middle of September. Encouraged them to call and set up an appt before they head to [place] if needed. I will likely sched them both together and update Rosalia's HT. JANNA VELASQUEZ, AUD [address] [address], [place], [address], [facility] - [facility] 05/25/2025 09:51:41
--- OUTSIDE RECORDS SUMMARY | 2025-07-25 10:04 | XMS_ITS | Continuity of Care Document ---
Author Organization [place] - [facility], [place] Address [address] [address] Assessment No assessment recorded. Plan of Treatment [...] Time Sensorineural hearing loss of bilateral ears [id number] Active 2024 SAHARA CASTILLO [place], [facility]3]-A 100 [facility] [address], [place], [address], [place] - [facility] 14:52:10 Problem Notes None recorded. Procedures Surgical History Date Name Laterality Status Provider Name and Address Organization Details Recorded Time 04/22/2025 Comp Audio with Tymps - 54345 & 79734 completed SAHARA CASTILLO [place], [facility]3]-A 100 [facility] [address], [place], [address], [place] - [facility] 04/22/2025 14:52:04 Imaging Results None recorded. [...] ICD10 Code Diagnosis IMO Codes Diagnosis Note [id number] BEVERLY MILLER [place] 100 [facility] 100 [place] [address] 04/27/2025 08:49:28 04/28/2025 15:29:36 Sensorineural hearing loss of bilateral ears [id number] H90.3 [id number] [facility] [place] 100 [facility] [place] [address] 05/05/2025 14:25:29 05/12/2025 11:16:22 Sensorineural hearing loss of bilateral ears [id number] H90.3 [id number] B[place]LY MILLER [place] 100 [facility],[place] 100 [facility] [place] [address] 05/25/2025 09:01:28 05/26/2025 11:37:24 Sensorineural hearing loss of bilateral ears [id number] H90.3 [id number] Health Concerns Section Related Observation LastModified by Organization Detai ls LastModified Time None Recorded Concern Status LastModified by Organization Details LastModified Time None Recorded Payers Encounter Date Sequence Insurance Name Policy Number Policy Moreno Covered Member ID Moreno Member ID Guarantor Name 05/25/2025 1 [place]ICARE B-[place]: [facility] [employer] Adithya Bullock [id number] Adithya Bullock 05/25/2025 2 [facility] INDEMNITY PLAN (MEDICARE SUPPLEMENT) [id number] Shahida Zoraida Kobe [id number] Adithya Bullock Notes Date Note Type Note [...] open domes if he prefers.They leave for [facility] in 2 weeks and head to [place] in the middle of September. Encouraged them to call and set up an appt before they head to [place] if needed. I will likely sched them both together and update Rosalia's HT. JANNA [facility] 100 [facility],[place] [address], [place], [address], [facility] - [facility] 05/25/2025 09:51:41
--- OUTSIDE RECORDS SUMMARY | 2025-07-25 10:04 | XMS_ITS | Clinical Summary ---
Author Organization [address] Address [address] [place] [address] Phone Care Team Providers Care Blow Molder Name Role Phone Rikki Chen MD Primary Care Provider Social History Tobacco Use Types Packs/Day Years Used Date Smoking Tobacco: Never Assessed Sex and Gender Information Value Date Recorded Sex Assigned at Not on file Legal Sex Male 8:13 PM EST Gender Identity Not on file Sexual Orientation Not on file Obstetrics History Last Filed Vital Signs Vital Sign Reading Time Taken Comments Blood Pressure 155/81 05/30/2023 10:42 AM EDT Sitting Left arm Pulse 88 05/30/2023 10:42 AM EDT Temperature - - Respiratory Rate - - Oxygen Saturation - - Inhaled Oxygen Concentration - - Weight 109 kg (240 lb) 05/30/2023 10:42 AM EDT Height 175.3 cm (5' 9 ) 05/30/2023 10:4 2 AM EDT Body Mass Index 35.44 05/30/2023 10:42 AM EDT Plan of Treatment Health Maintenance Due Date Last Done Comments Colorectal Cancer Screening: Colonoscopy 1950 DTaP,Tdap,and Td Vaccines (1 - Tdap) 1969 Pneumococcal Vaccine: 50+ Years (1 of 1 - PCV) 02/22/2000 Zoster Vaccines (1 of 2) 02/22/2000 Abdominal Aortic Aneurysm (AAA) Screen 10/09/2023 Cholesterol Screening (Lipid Panel) 10/09/2023 Falls Risk Assessment 10/09/2023 Hepatitis C Screening 10/09/2023 Social Influencers of Health Screening 10/09/2023 Depression Screening 09/15/2024 RSV Immunization Adult Patients (1 - 1-dose 75+ series) 2025 COVID-19 Vaccine ( season) 2025 Influenza Vaccine (#1) 2025 2, 07/09/2021, 07/07/2020, Additional history exists HIB Vaccines Aged Out No longer eligi ble based on patient's age to complete this topic HPV Vaccines Aged Out No longer eligi ble based on patient's age to complete this topic Hepatitis A Vaccines Aged Out No long er eligible based on patient's age to complete this topic Hepatitis B Vaccines Aged Out No long er eligible based on patient's age to complete this topic IPV Vaccines Aged Out No longer eligi ble based on patient's age to complete this topic MMR Vaccines Aged Out No longer eligi ble based on patient's age to complete this topic Meningococcal ACWY Vaccine Aged Out N o longer eligible based on patient's age to complete this topic Meningococcal B Vaccine Aged Out No l onger eligible based on patient's age to complete this topic RSV Immunization Patients Under 20 months Aged Out No longer eligible based on patient's age to complete this topic Varicella Vaccines Aged Out No longer eligible based on patient's age to complete this topic Care Teams Blow Molder Relationship Specialty Start Date End Date Rikki Chen MD [address] [place] [place] [address] PCP - General 04/14/23
--- OUTSIDE RECORDS SUMMARY | 2025-07-25 10:04 | XMS_ITS | Clinical Summary ---
Author Organization [facility] Address [address] [place] [address] Care Team Providers Care Strategic Planning Director Name Role Phone Rikki Chen MD Primary Care Provider [phone] Allergies Active Allergy Reactions Criticality Noted Date [...] age to complete this topic Care Teams Strategic Planning Director Relationship Specialty Start Date End Date Rikki Chen MD [address] [place] [id number] PCP - General Internal Medicine 04/14/23
== END 2025-07-25 09:52 | disposition home or self-care (01) ==
LOC: HO.HMCFM 09:16
PROVIDERS: PCP Internal Medicine; Visit Provider Internal Medicine
DX: E11.69 Type 2 diabetes mellitus with other specified complication (principal); I48.91 Unspecified atrial fibrillation

== ENCOUNTER → 2025-07-25 09:15 | Outpatient (BNVA) | payer MEDICARE, OTHER, SELFPAY | PROVIDERS: PCP Internal Medicine; Visit Provider Internal Medicine | DX: E11.69 Type 2 diabetes mellitus with other specified complication (principal); I48.91 Unspecified atrial fibrillation; G47.33 Obstructive sleep apnea (adult) (pediatric); Z85.038 Personal history of other malignant neoplasm of large intestine; Z79.01 Long term (current) use of anticoagulants; Z79.84 Long term (current) use of oral hypoglycemic drugs; Z79.899 Other long term (current) drug therapy; Z99.89 Dependence on other enabling machines and devices | CPT/HCPCS: 99212 ==